=== PATIENT | female | born 1940 | race Two or more races ===

== ENCOUNTER 2018-12-14 09:49 | Inpatient (IN) | payer OTHER ==
[~2018-12-14] VITALS: Ht 170.2 cm; Wt 72.1 kg
[2018-12-19] MEDS ORDERED: FORTAMET1000 MG PO (10:40)
[2018-12-19] MEDS ORDERED: COZAAR25 MG PO (10:41)
[2018-12-19] MEDS ORDERED: GLIPIZIDE ER10 MG PO (10:41)
[2018-12-31] MEDS ORDERED: HYOSCYAMINE0.125 M1 SL (13:06)
[2018-12-31] MEDS ORDERED: QUESTRAN PACKET4 GM PO (13:07)
[2018-12-31] MEDS ORDERED: ULTRACET PO (13:08)
== END 2018-12-31 14:11 | disposition home or self-care (01) | DRG 331 ==
LOC: SURH 12-26 08:08 → O/R 12-26 08:08 → SURG 12-26 09:15 → SURH 12-26 14:54
PROVIDERS: ADMIT Surgery
PROC: 07BB4ZZ Excision of Mesenteric Lymphatic, Percutaneous Endoscopic Approach (ICD-10-PCS; 2018-12-26)
PROC: 0DTF4ZZ Resection of Right Large Intestine, Percutaneous Endoscopic Approach (ICD-10-PCS; principal; 2018-12-26 14:30)
DX: C18.0 Malignant neoplasm of cecum (principal); R59.0 Localized enlarged lymph nodes; R14.0 Abdominal distension (gaseous); I10 Essential (primary) hypertension; D50.8 Other iron deficiency anemias; E11.9 Type 2 diabetes mellitus without complications; Z79.4 Long term (current) use of insulin